=== PATIENT | male | born 1950 | race Caucasian/White ===

== ENCOUNTER → 2019-02-15 | Outpatient (CLI) | payer MEDICARE, OTHER ==
--- NOTE | 2019-02-20 10:17 | PE ---
EXAMINATION TYPE: PET CT fusion skull to thigh DATE OF EXAM: 02/15/2019 COMPARISON: None available at this institution. HISTORY: Solitary pulmonary nodule. Paperwork states 8mm pulmonary nodule in the left lower lobe as t he area of concern on a recent outside CT. No prior biopsy, no prior surgery for lung cancer, no prio r radiation, and no prior chemotherapy. TECHNIQUE: Following the intravenous administration of 12.81 mCi of F-18 FDG, whole body images are performed from the skull base to the midthigh. Images are reviewed on the computer in the coronal, a xial, and sagittal planes. Reconstructed rotating images are created on independent workstation and reviewed on the computer. A localization and attenuation correction CT is performed in conjunction with the PET scan. SCAN: Initial FINDINGS: Mediastinal background: 2.0 Abdominal background: 2.6 SKULL BASE AND NECK: There is asymmetric uptake within a right level 2 lymph node measuring 5 mm in short axis. This is marked on series 3 image 24 and has a maximum SUV of 3.1. No additional suspiciou s uptake in the skull base or neck. CHEST, MEDIASTINUM, AND HILAR REGION: There is a punctate calcified pulmonary nodule at the left lung base on series 3 image 131 demonstrate no hypermetabolic activity. This has a maximum SUV of 0.97. S cattered areas of atelectasis are seen within both lungs. Calcified benign granuloma in the superior segment of the right lower lobe on image 91. This corresponds with the location of the described 8 mm pulmonary nodule on the outside CT. No hypermetabolic uptake within the lungs. ABDOMEN AND PELVIS: No suspicious hypermetabolic uptake. Some uptake within the gastric fundus could be on the basis of gastritis or physiologic uptake. Endoscopy could be considered. OSSEOUS STRUCTURES: No suspicious hypermetabolic uptake. OTHER CT: There is moderate mucosal thickening of the ethmoid sinuses. Mild mucosal thickening that i s polypoid of the maxillary sinuses. Sphenoid sinus is well aerated in its visualized portion as are the mastoid air cells. Multilevel degenerative changes of the spine are seen. Moderate background emp hysematous changes of the lungs. No mediastinal adenopathy. Ascending thoracic aorta is upper limits of normal size measuring 3.9 cm. Moderate coronary calcifications specifically of the left anterior d escending coronary artery. Moderate atheromatous change of the abdominal aorta and its branches. Urin keesha bladder is decompressed giving the appearance of circumferential urinary bladder wall thickening. IMPRESSION: 1. No suspicious hypermetabolic uptake and associated with the benign-appearing calcified left basila r granuloma. 2. Nonspecific mild but focal uptake within a right cervical chain level 2 lymph node. Contrast-enhan olivia CT or MRI of the head and neck could further assess for head or neck mass. 3. Gastric fundus mild uptake that could relate to gastritis or may be physiologic. Endoscopy could b e considered.
== END | disposition home or self-care (01) ==
LOC: RADPETMAIN 13:58
PROVIDERS: ATTEND Family Medicine
DX: R91.1 Solitary pulmonary nodule (principal)
CPT/HCPCS: 78815; A9552